=== PATIENT | female | born 1960 | race Caucasian/White ===

== ENCOUNTER 2016-10-28 09:48 | Emergency (ER) | payer BC ==
--- OUTSIDE RECORDS SUMMARY | 2016-10-28 10:17 | XMS REPORT | Continuity of Care Document ---
:1960 Author Organization [facility] ([facility]) Address [address] [place] [address] Phone [phone] Care Team Providers Name Role Phone Miya Jean Primary Care Provider [phone] Source Comments This disclosure is being made pursuant to the Care Everywhere program, applicable federal and state laws, and may not contain all informaitonavailable regarding this patient.[facility] ([facility]) Active Allergies and Adverse Reactions Allergen Noted Date Severity Reactions Comments Egg Derived 02/16/2011 Nausea & Vomiting Hydrocodone-Acetaminophen 02/16/2011 Nausea & Vomiting VICODIN Morphine 02/16/2011 Rash Onion 02/16/2011 Nausea & Vomiting Other Agent 02/16/2011 Urticaria (Hives) [place] Promethazine 02/16/2011 Mental status changes PHENERGAN Propoxyphene 02/16/2011 Mental status changes DARVOCET N-Acetaminophen [place] 02/16/2011 Anaphylaxis Current Medications Prescription Sig. Disp. Refills Start Date End Date Status liraglutide Inject 1.2 mg Active (VICTOZA) 0.6 subcutaneously daily. mg/0.1 mL injection pen (3 mL) insulin glargine Inject 40 Units Active (LanTUS SOLOSTAR) subcutaneously 2 100 unit/mL (3 mL) times daily. injection pen albuterol 90 Use 1-2 Puffs by 8.5 g 11 05/16/2016 Active mcg/Actuation inhalation every 6 inhaler hours as needed for Wheezing. aspirin 81 mg Take 1 tablet (81 mg 30 tablet 0 05/16/2016 Active chewable tablet total) by mouth daily. atorvastatin 20 mg Take 1 tablet (20 mg 30 tablet 0 05/16/2016 Active tablet total) by mouth daily. lisinopril 5 mg Take 1 tablet (5 mg 30 tablet 0 05/16/2016 Active tablet total) by mouth daily. nicotine 21-14-7 Apply as directed 56 Patch 0 05/16/2016 Active mg/24 hr accodring to package transdermal patch instructions. kit Active Problems Problem Noted Date Type 2 diabetes mellitus without complication 05/15/2016 Edema extremities 01/01/2015 Essential hypertension 01/01/2015 Dizziness and giddiness 07/27/2013 Lumbar spondylosis 03/18/2013 Noncompliance with medication regimen 02/06/2013 Edema 11/26/2012 COPD (chronic obstructive pulmonary disease) 10/17/2011 Unspecified essential hypertension 07/10/2011 Mixed hyperlipidemia 07/10/2011 Obesity, morbid 07/10/2011 Sleep apnea 07/10/2011 GERD (gastroesophageal reflux disease) 07/10/2011 Back pain 07/10/2011 CTS (carpal tunnel syndrome) 07/10/2011 Tobacco abuse 02/16/2011 Resolved Problems Problem Noted Date Resolved Date Chest pain, unspecified 01/01/2015 05/16/2016 Chest pain, unspecified 02/06/2013 05/19/2013 Chest pressure 09/25/2012 05/19/2013 Sinusitis 06/24/2012 07/07/2012 Candidal dermatitis 05/14/2012 09/25/2012 Health education/counseling 01/20/2012 09/25/2012 Vertigo 08/15/2011 07/07/2012 Palpitations 07/10/2011 05/19/2013 Most Recent Encounters Date Type Specialty Providers Description 09/25/2016 Office Visit [facility], Dx: Chest pain DO (Primary Dx) Immunizations Name Dates Previously Given Next Due Tdap 07/10/2011 Social History Tobacco Use Types Packs/Day Years Used Date Current Every Day Smoker Cigarettes 0.5 35 Smokeless Tobacco: Never Used Tobacco Cessation:Counseling Given: Yes Comments:started at age 17 Alcohol Use Drinks/Week oz/Week Comments No Last Filed Vital Signs Vital Sign Reading Time Taken Blood Pressure 120/68 09/25/2016 9:40 AM 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 Pulse 94 09/25/2016 9:40 AM 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 Temperature 36.2 C (97.2 F) 05/16/2016 8:05 AM CDT Respiratory Rate 18 05/16/2016 8:05 AM CDT Height 1.524 m (5') 09/25/2016 9:40 AM 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 Weight 114.306 kg (252 lb) 09/25/2016 9:40 AM 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 Body Mass Index 49.22 09/25/2016 9:40 AM 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 Oxygen Saturation 96% 05/16/2016 8:05 AM CDT Plan of Care Patient Goal Type Goal Weight Weight below 91 kg (200 lb) Blood Pressure Blood Pressure below 130/80 Result Component % HBA1C below 7.0 Lifestyle decrease stress Increase physical activity Quit smoking / using tobacco Health Maintenance Due Date Last Done Comments HCV Screening 1960 Hepatitis B Vaccine (1 of 3 - 1960 Primary Series) MMR Vaccine 1979 Pneumococcal Vaccine (1 of 1980 - PPSV23) FOBT Colon Cancer Screening 10/17/2012 10/17/2011 (Not indicated) DIABETIC: Foot Exam 01/19/2013 01/20/2012, 01/20/2012 DIABETIC: Retinal Eye Exam 05/14/2013 05/14/2012, 05/14/2012, 04/29/2011 Mammogram 05/14/2013 05/14/2012, 04/01/2011 DIABETIC: Hemoglobin A1C 07/08/2013 01/05/2013, Additional history exists 11/26/2012, 09/25/2012 DIABETIC: Microalbumin 09/25/2013 09/25/2012, Additional history exists 06/24/2012, 04/27/2012 DIABETIC: Cholesterol 01/05/2014 01/05/2013, Additional history exists 09/25/2012, 06/24/2012 Diabetic: Hdl 01/05/2014 01/05/2013, Additional history exists 09/25/2012, 06/24/2012 Diabetic: Ldl 01/05/2014 01/05/2013, Additional history exists 09/25/2012, 06/24/2012 DIABETIC: Triglycerides 01/05/2014 01/05/2013, Additional history exists 09/25/2012, 06/24/2012 Cervical Cancer Screening 05/14/2015 05/14/2012, 04/01/2011 Influenza Vaccine: Seasonal 04/01/2016 (#1) Td Vaccine 07/10/2021 07/10/2011 Colonoscopy 01/05/2023 01/05/2013, 11/14/2004 Tdap Vaccine Completed 07/10/2011 Results from Last 3 Months Not on file
[2016-10-28] MEDS ORDERED: ALBUTEROL SULFATE/IPRATROPIUM 3 ML NEBU IH ONE ×2 (10:22→10:32)
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
[2016-10-28 10:42] LABS: Hemoglobin 14.9 gm/dL (12.5-16.0); Mean Cell Volume 89.2 fl (78-100); Mean Corpuscular Hemoglobin 30.2 pg (27-31); Mean Corpuscular Hgb Conc 33.9 g/dl (32-36); Mean Platelet Volume 9.4 fl (6.0-9.5); Neutrophil # 4.9 K/mm3 (1.3-6.0); Neutrophil % 62.5 % (42-75.0); Platelet Count 250 K/mm3 (150-450); Red Blood Count 4.93 M/mm3 (4.2-5.4); Red Cell Distribution Width 12.7 % (11.5-14.0); White Blood Count 7.9 K/mm3 (4.0-10.5)
[2016-10-28 10:51] LABS: Albumin * 3.3 gm/dl (3.4-5.0); Anion Gap 15.2 mmol/L (6.8-13.8); BUN/Creatinine Ratio 11.5 (9.0-21.6); Bilirubin, Total 0.2 mg/dL (0.0-1.1); Ca. Corrected For Albumin 8.6 mg/dL (8.4-10.2); Calcium * 8.4 mg/dL (7.9-10.9); Carbon Dioxide 23.7 mmol/L (24-32.6); Potassium 3.9 mmol/L (3.4-4.6); Total Protein 6.9 gm/dL (6.2-8.2)
[2016-10-28] MEDS ORDERED: LEVOFLOXACIN 500 MG TABLET PO ONE (11:47)
[2016-10-28] MEDS ORDERED: METHYLPREDNISOLONE SOD SUCC/PF 125 MG/2 ML VIAL IM ONE (11:48)
[2016-10-28] MEDS ORDERED: METHYLPREDNISOLONE SOD SUCC/PF 125 MG/2 ML VIAL ONE (11:50)
[2016-10-28] MEDS ORDERED: LEVOFLOXACIN 500 MG TABLET ONE (12:09)
[2016-10-28 20:38] VITALS: BP 140/71
== END 2016-10-28 11:54 | disposition home or self-care (01) ==
LOC: ER 09:48
DX: J44.1 Chronic obstructive pulmonary disease with (acute) exacerbation (principal); Z72.0 Tobacco use; J01.40 Acute pansinusitis, unspecified; I25.2 Old myocardial infarction; I10 Essential (primary) hypertension; E78.5 Hyperlipidemia, unspecified; E11.9 Type 2 diabetes mellitus without complications; Z79.4 Long term (current) use of insulin

== ENCOUNTER 2016-11-13 14:27 | Emergency (ER) | payer BC ==
[2016-11-13 14:48] VITALS: BP 174/74
--- OUTSIDE RECORDS SUMMARY | 2016-11-13 16:45 | XMS REPORT | Continuity of Care Document ---
:1960 Author Organization [facility] ([facility]) Address [address] [place] [address] Phone [phone] Care Team Providers Name Role Phone Miya Jean Primary Care Provider [phone] Source Comments This disclosure is being made pursuant to the Care Everywhere program, applicable federal and state laws, and may not contain all informaitonavailable regarding this patient.[facility] ([facility]) Active Allergies and Adverse Reactions Allergen Noted Date Severity Reactions Comments Egg Derived 02/16/2011 Nausea & Vomiting Hydrocodone-Acetaminophen 02/16/2011 Nausea & Vomiting VICODIN Morphine 02/16/2011 Rash Onion 02/16/2011 Nausea & Vomiting Other Agent 02/16/2011 Urticaria (Hives) [place] Promethazine 02/16/2011 Mental status changes PHENERGAN Propoxyphene 02/16/2011 Mental status changes DARVOCET N-Acetaminophen [place] 02/16/2011 Anaphylaxis Current Medications Prescription Sig. Disp. [...] Taken Blood Pressure 120/68 09/25/2016 9:40 AM [employer]IKE PLATE ATT[employer]ER Pulse 94 09/25/2016 9:40 AM [employer]ATE [employer] Temperature 36.2 C (97.2 F) 05/16/2016 8:05 AM CDT Respiratory Rate 18 05/16/2016 8:05 AM CDT Height 1.524 m (5') 09/25/2016 9:40 AM [employer]IKE PLATE [employer]ER Weight 114.306 kg (252 lb) 09/25/2016 9:40 AM [employer] PLATE [employer] Body Mass Index 49.22 09/25/2016 9:40 AM [employer] PLATE [employer] Oxygen Saturation 96% 05/16/2016 8:05 AM CDT [...]
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
== END 2016-11-13 17:21 | disposition home or self-care (01) ==
LOC: ER 14:27
DX: L85.3 Xerosis cutis (principal); F17.210 Nicotine dependence, cigarettes, uncomplicated

== ENCOUNTER 2016-12-26 21:53 | Emergency (ER) | payer BC ==
[2016-12-26] MEDS ORDERED: ASPIRIN 81 MG TAB.CHEW PO ONE (22:23)
[2016-12-26] MEDS ORDERED: ASPIRIN 81 MG TAB.CHEW ONE (22:24)
[2016-12-26 22:27] LABS: Hematocrit 42.7 % (37.0-47.0); Hemoglobin 14.4 gm/dL (12.5-16.0); Mean Cell Volume 88.4 fl (78-100); Mean Corpuscular Hemoglobin 29.8 pg (27-31); Mean Corpuscular Hgb Conc 33.7 g/dl (32-36); Mean Platelet Volume 9.5 fl (6.0-9.5); Neutrophil # 4.5 K/mm3 (1.3-6.0); Neutrophil % 51.1 % (42-75.0); Platelet Count 228 K/mm3 (150-450); Red Blood Count 4.83 M/mm3 (4.2-5.4); Red Cell Distribution Width 12.4 % (11.5-14.0); White Blood Count 8.7 K/mm3 (4.0-10.5)
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
--- OUTSIDE RECORDS SUMMARY | 2016-12-26 22:38 | XMS REPORT | Continuity of Care Document ---
:1960 Author Organization [facility] ([facility]) Address [address] [place] [address] Phone [phone] Care Team Providers Name Role Phone Miya Jean Primary Care Provider [phone] Source Comments This disclosure is being made pursuant to the Care Everywhere program, applicable federal and state laws, and may not contain all informaitonavailable regarding this patient.[facility] ([facility]) Active Allergies and Adverse Reactions Allergen Noted Date Severity Reactions Comments Egg Derived 02/16/2011 Nausea & Vomiting Hydrocodone-Acetaminophen 02/16/2011 Nausea & Vomiting VICODIN Morphine 02/16/2011 Rash Onion 02/16/2011 Nausea & Vomiting Other Agent 02/16/2011 Urticaria (Hives) [place] Promethazine 02/16/2011 Mental status changes PHENERGAN Propoxyphene 02/16/2011 Mental status changes DARVOCET N-Acetaminophen [place] 02/16/2011 Anaphylaxis Current Medications Prescription Sig. Disp. [...] 09/25/2012 Vertigo 08/15/2011 07/07/2012 Palpitations 07/10/2011 05/19/2013 Immunizations Name Dates Previously Given Next Due Tdap 07/10/2011 Social History Tobacco Use Types Packs/Day Years Used Date Current Every Day Smoker Cigarettes 0.5 35 Smokeless Tobacco: Never Used Tobacco Cessation:Counseling Given: Yes Comments:started at age 17 Alcohol Use Drinks/Week oz/Week Comments No Last Filed Vital Signs Vital Sign Reading Time Taken Blood Pressure 120/68 09/25/2016 9:40 AM LEASE ADMINISTRATION ANALYST Pulse 94 09/25/2016 9:40 AM LEASE ADMINISTRATION ANALYST Temperature 36.2 C (97.2 F) 05/16/2016 8:05 AM CDT Respiratory Rate 18 05/16/2016 8:05 AM CDT Height 1.524 m (5') 09/25/2016 9:40 AM LEASE ADMINISTRATION ANALYST Weight 114.306 kg (252 lb) 09/25/2016 9:40 AM LEASE ADMINISTRATION ANALYST Body Mass Index 49.22 09/25/2016 9:40 AM LEASE ADMINISTRATION ANALYST Oxygen Saturation 96% 05/16/2016 8:05 AM CDT [...] MMR Vaccine 1979 Pneumococcal Vaccine (1 of 1 1980 - PPSV23) FOBT Colon Cancer Screening [...]
[2016-12-26 22:46] LABS: Prothrombin Time (Patient) 10.1 Seconds (9.4-11.4)
[2016-12-26 22:51] LABS: ALT 26 U/L (19-67); AST 13 U/L (0-48); Albumin * 3.3 gm/dl (3.4-5.0); Alkaline Phosphatase * 137 U/L (50-170); Anion Gap 14.7 mmol/L (6.8-13.8); BUN/Creatinine Ratio 9.9 (9.0-21.6); Bilirubin, Total 0.2 mg/dL (0.0-1.1); Blood Urea Nitrogen 9 mg/dL (3-23); Calcium * 8.8 mg/dL (7.9-10.9); Carbon Dioxide 25.8 mmol/L (24-32.6); Chloride 103 mmol/L (97-106); Glucose * 350 mg/dL (70-110); INR 0.97 INR (0.90-1.10); Partial Thrombolplastin Time 25.1 Seconds (24-32); Potassium 3.5 mmol/L (3.4-4.6); Sodium 140 mmol/L (132-142); Total Protein 6.8 gm/dL (6.2-8.2); Troponin I Less than 0.017 ng/ml (0.00-0.10)
[2016-12-27 00:47] VITALS: BP 135/74
== END 2016-12-27 03:27 | disposition left against medical advice (07) ==
LOC: ER 21:53
DX: R07.89 Other chest pain (principal); Z72.0 Tobacco use; E11.9 Type 2 diabetes mellitus without complications; Z79.4 Long term (current) use of insulin; E78.5 Hyperlipidemia, unspecified

== ENCOUNTER 2017-05-07 11:41 | Emergency (ER) | payer BC ==
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
[2017-05-07] MEDS ORDERED: KETOROLAC TROMETHAMINE 60 MG/2 ML VIAL IM ONE ×2 (12:53→12:57)
[2017-05-07 13:51] VITALS: BP 137/72
== END 2017-05-07 14:21 | disposition home or self-care (01) ==
LOC: ER 11:41
DX: M54.9 Dorsalgia, unspecified (principal); S80.01XA Contusion of right knee, initial encounter; V40.1XXA Car passenger injured in collision with pedestrian or animal in nontraffic accident, initial encounter; Y93.9 Activity, unspecified; Y92.410 Unspecified street and highway as the place of occurrence of the external cause; F17.200 Nicotine dependence, unspecified, uncomplicated

== ENCOUNTER 2017-09-15 15:36 | Inpatient (IN) | payer OTHER ==
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
[2017-09-15 16:44] LABS: Hemoglobin 14.7 gm/dL (12.5-16.0); Mean Cell Volume 87.4 fl (78-100); Mean Corpuscular Hemoglobin 29.9 pg (27-31); Mean Corpuscular Hgb Conc 34.2 g/dl (32-36); Mean Platelet Volume 9.3 fl (6.0-9.5); Neutrophil # 10.7 K/mm3 (1.3-6.0); Neutrophil % 69.4 % (42-75.0); Platelet Count 346 K/mm3 (150-450); Red Blood Count 4.92 M/mm3 (4.2-5.4); Red Cell Distribution Width 12.2 % (11.5-14.0); White Blood Count 15.4 K/mm3 (4.0-10.5)
[2017-09-15] MEDS: OSELTAMIVIR PHOSPHATE 75 MG CAPSULE PO SCH ×2 (16:55→20:18)
[2017-09-15] MEDS: ENOXAPARIN SODIUM 40 MG/0.4 ML SYRG SC SCH (16:55)
[2017-09-15 16:56] LABS: Anion Gap 15.8 mmol/L (6.8-13.8); BUN/Creatinine Ratio 17.4 (9.0-21.6); Calcium * 9.4 mg/dL (7.9-10.9); Carbon Dioxide 23.7 mmol/L (24-32.6); Potassium 3.5 mmol/L (3.4-4.6)
[2017-09-15] MEDS: ALBUTEROL SULFATE/IPRATROPIUM 3 ML NEBU IH SCH ×3 (17:17→22:15)
[2017-09-15] MEDS: cefTRIAXone SODIUM 1,000 MG in DEXTROSE 5 % IN WATER 50 ML IV SCH ×2 (17:19)
[2017-09-15] MEDS: METHYLPREDNISOLONE SOD SUCC 60 MG in WATER FOR INJ.,BACTERIOSTATIC 0 ML IV SCH ×2 (17:20→22:05)
[2017-09-15] MEDS: AZITHROMYCIN 500 MG in DEXTROSE 5 % IN WATER 250 ML IV SCH ×2 (17:47)
[2017-09-15] MEDS: ACETAMINOPHEN 325 MG TABLET PO PRN (20:19)
[2017-09-16] MEDS: ALBUTEROL SULFATE/IPRATROPIUM 3 ML NEBU IH SCH ×6 (02:13→22:13)
[2017-09-16] MEDS: METHYLPREDNISOLONE SOD SUCC 60 MG in WATER FOR INJ.,BACTERIOSTATIC 0 ML IV SCH ×4 (03:45→21:57)
[2017-09-16 06:04] LABS: Hematocrit 40.8 % (37.0-47.0); Hemoglobin 13.7 gm/dL (12.5-16.0); Mean Cell Volume 90.3 fl (78-100); Mean Corpuscular Hemoglobin 30.3 pg (27-31); Mean Corpuscular Hgb Conc 33.6 g/dl (32-36); Mean Platelet Volume 9.8 fl (6.0-9.5); Neutrophil # 9.4 K/mm3 (1.3-6.0); Platelet Count 285 K/mm3 (150-450); Red Blood Count 4.52 M/mm3 (4.2-5.4); Red Cell Distribution Width 12.4 % (11.5-14.0); White Blood Count 10.8 K/mm3 (4.0-10.5)
[2017-09-16 06:52] LABS: Anion Gap 16.8 mmol/L (6.8-13.8); BUN/Creatinine Ratio 15.6 (9.0-21.6); Calcium * 9.1 mg/dL (7.9-10.9); Estimated Creat Clear 41.4; Potassium 4.8 mmol/L (3.4-4.6)
[2017-09-16] MEDS ORDERED: INSULIN LISPRO 100 UNITS/ML VIAL SC SCH ×2 (07:00→08:00)
[2017-09-16] MEDS ORDERED: FLUCONAZOLE 150 MG TABLET PO ONE (07:42)
[2017-09-16] MEDS ORDERED: NAPROXEN 500 MG TABLET PO PRN (08:24)
[2017-09-16] MEDS ORDERED: INSULIN GLARGINE,HUM.REC.ANLOG 100 UNITS/ML VIAL SC SCH (08:45)
[2017-09-16] MEDS ORDERED: METOPROLOL TARTRATE 50 MG TABLET PO SCH (09:00)
[2017-09-16] MEDS ORDERED: glyBURIDE 2.5 MG TABLET PO SCH (09:00)
--- NOTE | 2017-09-16 09:01 | PN ---
Subjective - Date and Time Seen Date: 09/16/17 Time: 08:59 Subjective Narrative: Patient seen and examined at bedside. Patient complains of heaviness and tightness in her chest with deep breaths and coughing. Objective - Review of Systems Generalized/Overall Review: Reports: Weakness, Fatigue EENTM: Reports: No Symptoms Reported Respiratory: Reports: Cough, Shortness of Breath, Wheezing Cardiac: Reports: No Symptoms Reported Abdominal: Reports: No Symptoms Reported Genitourinary Symptoms: Reports: No Symptoms Reported Musculoskeletal Complaints: Reports: No Symptoms Reported Neurological: Reports: No Symptoms Reported Skin: Reports: No Symptoms Reported Endocrine: Reports: No Symptoms Reported Misc: All systems neg except as marked - Vitals Vitals: Last Vital Signs Temp 36.6 C 09/16/17 08:01 Pulse 104 H 09/16/17 08:01 Resp 18 09/16/17 08:01 BP 102/72 09/16/17 08:01 Pulse Ox 94 09/16/17 08:01 - Abnormal Lab Findings Abnormal Lab Findings: Abnormal Lab Results 09/15/17 09/15/17 09/15/17 Range/Units 16:40 16:40 16:40 WBC 15.4 H D (4.0-10.5) K/mm3 MPV (6.0-9.5) fl Immature Gran % (Auto) 0.80 H (0.001-0.429) % Immature Gran # (Auto) 0.12 H (0.000-0.0310) K/mm3 Neutrophils % (42-75.0) % Lymphocytes % (20-51) % Neutrophils # 10.7 H (1.3-6.0) K/mm3 Lymphocytes # 3.8 H (1.5-3.5) k/mm3 Plasma Sodium 143 H (130-142) mmol/L Potassium (3.4-4.6) mmol/L Carbon Dioxide 23.7 L (24-32.6) mmol/L Anion Gap 15.8 H (6.8-13.8) mmol/L Est GFR (Non-Af Amer) (60-130) mL/min Random Glucose 281 H (70-110) mg/dL Procalcitonin Less than 0.05 L (0.05-0.50) ng/mL 09/16/17 09/16/17 Range/Units 05:15 05:15 WBC 10.8 H D (4.0-10.5) K/mm3 MPV 9.8 H (6.0-9.5) fl Immature Gran % (Auto) 1.40 H (0.001-0.429) % Immature Gran # (Auto) 0.15 H (0.000-0.0310) K/mm3 Neutrophils % 87.0 H (42-75.0) % Lymphocytes % 10.7 L (20-51) % Neutrophils # 9.4 H (1.3-6.0) K/mm3 Lymphocytes # 1.2 L (1.5-3.5) k/mm3 Plasma Sodium 145 H (130-142) mmol/L Potassium 4.8 H D (3.4-4.6) mmol/L Carbon Dioxide 23.0 L (24-32.6) mmol/L Anion Gap 16.8 H (6.8-13.8) mmol/L Est GFR (Non-Af Amer) 55 L (60-130) mL/min Random Glucose 607 H* D (70-110) mg/dL Procalcitonin (0.05-0.50) ng/mL - Exam Constitutional: Present: Alert, Oriented x3, Cooperative, Mild distress - appears acutely ill ENT Exam: Present: hearing grossly normal, moist mucous membranes Respiratory: Present: rhonchi, wheezing, expiration (prolonged) Cardiovascular/Chest: Present: regular rate, rhythm Abdomen: Present: soft, nontender, nondistended, obese Extremity: Present: non-tender, normal inspection Skin Exam: Present: warm/dry Neurologic: Present: no motor/sensory deficits, alert, normal mood/affect, oriented x 3 Appearance: Present: appropriate appearance, appropriate insight, no memory impairment Eye contact: Present: cooperative, good eye contact, normal speech Thoughts: Present: normal thought pattern, no apparent hallucination Assessment/Plan Plan Narrative: Continue IV steroids and IV antibiotics. Patient will complete her 5 day course of Tamiflu today. Supplemental O2 as needed with goal SpO2>90%. Scheduled ATC nebulized breathing treatments every 4 hours. Sputum culture and blood cultures pending. VTE ppx with Lovenox and SCDs. Elevated BG secondary to acute illness and IV steroids. Start Lantus 40 Units Q12H and high dose correction insulin TID with meals. I would expect the patient will need to remain in the hospital for at least another 2-3 days while receiving IV steroids and antibiotics. - Problems/Diagnosis (1) Community acquired pneumonia Problem: Acute (2) Acute exacerbation of chronic obstructive airways disease Problem: Acute (3) Influenza A Problem: Acute (4) Failure of outpatient treatment Problem: Acute
[2017-09-16] MEDS: glyBURIDE 5 MG TABLET PO SCH (09:28)
[2017-09-16] MEDS: METOPROLOL TARTRATE 50 MG TABLET PO SCH ×2 (09:28→21:58)
[2017-09-16] MEDS: ASPIRIN 81 MG TABLET.DR PO SCH (09:29)
[2017-09-16] MEDS: INSULIN GLARGINE,HUM.REC.ANLOG 100 UNITS/ML VIAL SC SCH ×2 (09:29→21:58)
[2017-09-16] MEDS: INSULIN LISPRO 100 UNITS/ML VIAL SC SCH ×2 (11:05→16:42)
[2017-09-16] MEDS: OSELTAMIVIR PHOSPHATE 75 MG CAPSULE PO SCH ×2 (11:24→21:58)
[2017-09-16] MEDS: ENOXAPARIN SODIUM 40 MG/0.4 ML SYRG SC SCH (16:42)
[2017-09-16] MEDS: cefTRIAXone SODIUM 1,000 MG in DEXTROSE 5 % IN WATER 50 ML IV SCH ×2 (17:14)
[2017-09-16] MEDS: AZITHROMYCIN 500 MG in DEXTROSE 5 % IN WATER 250 ML IV SCH ×2 (18:15)
[2017-09-16] MEDS: ROSUVASTATIN CALCIUM 10 MG TABLET PO SCH (21:59)
[2017-09-16] MEDS: ACETAMINOPHEN 325 MG TABLET PO PRN (22:10)
[2017-09-17] MEDS: ALBUTEROL SULFATE/IPRATROPIUM 3 ML NEBU IH SCH ×6 (02:11→21:59)
[2017-09-17] MEDS: METHYLPREDNISOLONE SOD SUCC 60 MG in WATER FOR INJ.,BACTERIOSTATIC 0 ML IV SCH ×4 (04:02→22:15)
[2017-09-17] MEDS: INSULIN LISPRO 100 UNITS/ML VIAL SC SCH ×4 (06:52→16:50)
[2017-09-17] MEDS: METOPROLOL TARTRATE 50 MG TABLET PO SCH ×2 (09:32→22:12)
[2017-09-17] MEDS: INSULIN GLARGINE,HUM.REC.ANLOG 100 UNITS/ML VIAL SC SCH ×2 (09:32→22:19)
[2017-09-17] MEDS: glyBURIDE 5 MG TABLET PO SCH (09:32)
[2017-09-17] MEDS: ASPIRIN 81 MG TABLET.DR PO SCH (09:32)
--- NOTE | 2017-09-17 10:22 | PN ---
Subjective - Date and Time Seen Date: 09/17/17 Time: 08:00 Subjective Narrative: Patient seen and examined at bedside. Patient continues to complain of heaviness and tightness in her chest, especially with deep breaths and coughing. However, she states it is improving and she also states that overall, she is starting to feel much better. Objective - Review of Systems Generalized/Overall Review: Reports: Fatigue EENTM: Reports: No Symptoms Reported Respiratory: Reports: Cough, Shortness of Breath, Wheezing Cardiac: Reports: No Symptoms Reported Abdominal: Reports: No Symptoms Reported Genitourinary Symptoms: Reports: No Symptoms Reported Musculoskeletal Complaints: Reports: No Symptoms Reported Neurological: Reports: No Symptoms Reported Skin: Reports: No Symptoms Reported Endocrine: Reports: No Symptoms Reported Misc: All systems neg except as marked - Vitals Vitals: Last Vital Signs Temp 36.7 C 09/17/17 07:04 Pulse 89 09/17/17 09:32 Resp 20 09/17/17 07:04 BP 120/69 09/17/17 09:32 Pulse Ox 92 09/17/17 07:04 - Exam Constitutional: Present: Alert, Oriented x3, Cooperative, No distress ENT Exam: Present: hearing grossly normal, moist mucous membranes Respiratory: Present: no respiratory distress, no accessory muscle use, rhonchi , expiration (prolonged), other - Overall, improved air movement when compared to yesterday Cardiovascular/Chest: Present: regular rate, rhythm Abdomen: Present: soft, nontender, nondistended Extremity: Present: normal inspection Skin Exam: Present: warm/dry Neurologic: Present: no motor/sensory deficits, alert, normal mood/affect, oriented x 3 Appearance: Present: appropriate appearance, appropriate insight, no memory impairment Eye contact: Present: cooperative, good eye contact, normal speech Thoughts: Present: normal thought pattern, no apparent hallucination Assessment/Plan Plan Narrative: Continue current cares including IV steroids and IV antibiotics. Tentative plan is for another 24 hours of IV treatment and then transition to oral tomorrow with plans to discharge home tomorrow (09/18/2017). Patient completed her 5 day course of Tamiflu on 09/16/2017. Continue supplemental O2 as needed with goal SpO2>90%. Scheduled ATC nebulized breathing treatments every 4 hours. Blood cultures NGTD. Sputum culture pending. VTE ppx with Lovenox and SCDs. Elevated BG secondary to acute illness and IV steroids. Continue Lantus 40 Units Q12H and high dose correction insulin TID with meals. - Problems/Diagnosis (1) Community acquired pneumonia Problem: Acute (2) Acute exacerbation of chronic obstructive airways disease Problem: Acute (3) Influenza A Problem: Acute (4) Failure of outpatient treatment Problem: Acute
[2017-09-17] MEDS: ACETAMINOPHEN 325 MG TABLET PO PRN (16:42)
[2017-09-17] MEDS: ENOXAPARIN SODIUM 40 MG/0.4 ML SYRG SC SCH (16:44)
[2017-09-17] MEDS: cefTRIAXone SODIUM 1,000 MG in DEXTROSE 5 % IN WATER 50 ML IV SCH ×2 (16:55)
[2017-09-17] MEDS: AZITHROMYCIN 500 MG in DEXTROSE 5 % IN WATER 250 ML IV SCH ×2 (17:35)
[2017-09-17] MEDS: ROSUVASTATIN CALCIUM 10 MG TABLET PO SCH (22:12)
[2017-09-17 22:17] VITALS: BP 137/70
[2017-09-18] MEDS: ALBUTEROL SULFATE/IPRATROPIUM 3 ML NEBU IH SCH ×2 (02:10→06:12)
[2017-09-18] MEDS: ACETAMINOPHEN 325 MG TABLET PO PRN (05:01)
[2017-09-18] MEDS: METHYLPREDNISOLONE SOD SUCC 60 MG in WATER FOR INJ.,BACTERIOSTATIC 0 ML IV SCH (05:01)
[2017-09-18] MEDS: INSULIN LISPRO 100 UNITS/ML VIAL SC SCH (07:18)
--- NOTE | 2017-09-18 07:21 | DS ---
(1) Community acquired pneumonia Problem: Acute (2) Acute exacerbation of chronic obstructive airways disease Problem: Acute (3) Influenza A Problem: Acute (4) Failure of outpatient treatment Problem: Acute Description of Stay: ADMISSION DATE: 09/15/2017 DISCHARGE DATE: 09/18/2017 ADMISSION HPI: The patient presents with ongoing fevers, chills, body aches, worsening cough and worsening SOB. The patient was first evaluated in the office on 09/10/2017 at which time she was diagnosed with influenza and pneumonia and was started on Tamiflu and levaquin. She then presented to the ED on 09/14/2017 for worsening symptoms and was discharged from the ED on cefdinir, azithromycin and prednisone. She called the clinic today as she felt her condition continued to deteriorate. HOSPITAL COURSE: The patient was admitted to the hospital for treatment of an acute exacerbation of COPD secondary to community-acquired pneumonia and influenza A after failing outpatient treatment. The patient completed a 5 day course of Tamiflu on 2017. The patient made significant clinical improvement during her admission with treatment including IV steroids, IV antibiotics and [id number] nebulized breathing treatments. The patient was discharged home in stable condition and instructed to follow-up with her primary care physician within one to 2 weeks. She was also instructed to complete her course of oral IV antibiotics and oral steroids as ordered. The patient will need a follow-up chest x-ray in approximately 4 weeks to document resolution of pneumonia. FOLLOW-UP APPOINTMENTS: -PCP, Dr. Jean, within 1-2 weeks -Follow-up CXR in ~4 weeks NEW OR CHANGED MEDICATIONS: -Azithromcyin 500mg PO daily X 5 days -Prednisone 40mg PO daily X 5 days -Cepacol throat lozenges DISCONTINUED MEDICATIONS: None RADIOLOGY REPORTS: PA and lateral chest x-ray on 09/14/2017: Right middle lobe and lingular atelectasis versus potential infiltrates. Correlate clinically for pneumonia. Recommend follow-up to document resolution. Procedures Performed: none Discharge Disposition: Home self care Disposition: Home self-care Condition: Stable Discharge Activity: Activity as tolerated Discharge Diet: Consistent carbs Referrals: Miya Jean DO [Primary Care Provider] - Additional Patient Instructions (free text): -Follow-up with Dr. Jean within 1-2 weeks -Follow-up CXR in approximately 4 weeks Prescriptions (Any new or edited meds): Azithromycin [Zithromax] 500 mg PO DAILY #5 tab Dextromethorphan/Benzocaine [Cepacol Sorethroat-Cough [place]] 1 each PO Q1H PRN # 16 lozenge PRN Reason: Sore Throat predniSONE [Prednisone] 40 mg PO DAILY 5 Days #10 tablet Complete Home Medications List: Complete Home Medication List: Acetaminophen [Tylenol] 500 mg PO Q3H PRN 07/22/16 Albuterol Sulfate [Proair Hfa] 2 puff IH Q6H PRN 07/22/16 Aspirin [Aspirin Enteric Coated] 81 mg PO DAILY 07/22/16 Atorvastatin Calcium [Lipitor] 20 mg PO DAILY 07/22/16 Metformin HCl 1,000 mg PO BID 08/15/17 Metoprolol Tartrate 50 mg PO BID 09/14/17 Naproxen [Naprosyn] 500 mg PO BID PRN #60 tab 09/14/17 glyBURIDE [Micronase] 2.5 mg PO DAILY 09/14/17 Ibuprofen/Diphenhydramine HCl [Advil Pm Liqui-Gels] 1 each PO HS PRN 09/15/17 Azithromycin [Zithromax] 500 mg PO DAILY #5 tab 09/18/17 Dextromethorphan/Benzocaine [Cepacol Sorethroat-Cough [place]] 1 each PO Q1H PRN # 16 lozenge 09/18/17 predniSONE [Prednisone] 40 mg PO DAILY 5 Days #10 tablet 09/18/17 Amb Orders for Discharge: Chest PA & Lateral * Time Frame: 4 Weeks, Location: Determined By Patient
[2017-09-18] MEDS: INSULIN GLARGINE,HUM.REC.ANLOG 100 UNITS/ML VIAL SC SCH (08:46)
[2017-09-18] MEDS: glyBURIDE 5 MG TABLET PO SCH (08:48)
[2017-09-18] MEDS: METOPROLOL TARTRATE 50 MG TABLET PO SCH (08:48)
[2017-09-18] MEDS: ASPIRIN 81 MG TABLET.DR PO SCH (08:48)
== END 2017-09-18 10:34 | disposition home or self-care (01) | DRG 190 ==
LOC: MS 15:36
PROVIDERS: ADMIT Internal Medicine; ATTEND Internal Medicine
DX: J44.1 Chronic obstructive pulmonary disease with (acute) exacerbation (principal); J10.00 Influenza due to other identified influenza virus with unspecified type of pneumonia; E11.9 Type 2 diabetes mellitus without complications; I10 Essential (primary) hypertension; E78.5 Hyperlipidemia, unspecified; I25.10 Atherosclerotic heart disease of native coronary artery without angina pectoris; Z79.4 Long term (current) use of insulin; Z79.82 Long term (current) use of aspirin